=== PATIENT | male | born 1965 | race Caucasian/White ===

== ENCOUNTER → 2017-08-01 | Outpatient (REF) | payer OTHER | LOC: M SMT 10:46 | DX: R97.20 Elevated prostate specific antigen [PSA] (principal) ==

== ENCOUNTER → 2017-08-07 | Outpatient (CLI) | payer BC, OTHER | LOC: M SMT PRO 08:53 | DX: R97.20 Elevated prostate specific antigen [PSA] (principal) | CPT/HCPCS: G0416 ==

== ENCOUNTER → 2018-02-08 | Outpatient (CLI) | payer BC, OTHER ==
[2018-02-08 13:57] LABS: PROSTATIC SPECIFIC AG MONITOR 5.2 NG/ML (< 4.0)
== END ==
LOC: M SMT 11:37
DX: R97.20 Elevated prostate specific antigen [PSA] (principal)
CPT/HCPCS: 84153

== ENCOUNTER → 2018-07-02 | Outpatient (CLI) | payer BC, OTHER ==
[~2018-07-02] MED LIST: E-Z-GAS II EFFERVESCENT PACKET (SODIUM BICARB./CITRIC ACID/SIMETHICONE) As Ordered ONE; E-Z-HD 98% w/w 340GM SUSP BTL As Ordered ONE; E-Z-PAQUE 96% w/w SUSP 176GM BTL As Ordered ONE; OMEP-218 PO; PROS5TAB PO; VALA500T5 PO
--- NOTE | 2018-07-03 09:34 | REP ---
Esophagram The procedure was performed under the direct supervision of Dr. Shoemaker. The images were reviewed with Dr. Shoemaker. 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 The superior mediastinal structures are midline. There is no change compared to a previous chest x-ray performed on 04/25/2012. The barium was administered in the erect and prone oblique positions. The oral and pharyngeal stages of deglutition are unremarkable. The patient is status post Pro fundoplication and myotomy. The stricture just above the fundoplication seen on the previous exam dated 04/25/2012 has improved. There is dilation of the esophagus proximally. However, this is less than seen on the previous exam. There is residual food in the esophagus. There is delayed emptying. Impression: The stricture just above the fundoplication seen on a previous exam dated 04/25/2012 has improved. There is dilation of the esophagus proximally. However, this is less than seen on the previous exam. There is residual food in the esophagus. There is delayed emptying. 0.8 minutes of fluoro time was utilized for this procedure. Reviewed by HEATHER Webster 07/02/2018 05:01 P Electronically Signed by Jose Shoemaker MD 07/03/2018 09:25 A
== END ==
LOC: M RAD 08:30
PROVIDERS: ATTEND Internal Medicine Gastroenterology
DX: K22.0 Achalasia of cardia (principal)

== ENCOUNTER 2018-07-12 09:58 | Day surgery (SDC) | payer BC, OTHER ==
[~2018-07-12] VITALS: Ht 185.4 cm; Wt 87.1 kg
[2018-07-12] MEDS: NS 1,000 ML IV SCH ×2 (07:00→12:55)
[~2018-07-12 09:58] MED LIST changes: -E-Z-GAS II EFFERVESCENT PACKET (SODIUM BICARB./CITRIC ACID/SIMETHICONE) As Ordered ONE; -E-Z-HD 98% w/w 340GM SUSP BTL As Ordered ONE; -E-Z-PAQUE 96% w/w SUSP 176GM BTL As Ordered ONE; +LIDOCAINE 2% INJ 100 MG/5 ML SDV (FOR ANES.) As Ordered ONE; +PROPOFOL 200 MG/20 ML VIAL As Ordered ONE
--- NOTE | 2018-07-12 12:07 | ROOR ---
Patient Name: Santos Campbell Procedure Date: 07/12/2018 11:40 AM Date of : 1965 Age: 53 Room: [facility] Gender: Male Note Status: Finalized Procedure: Upper GI endoscopy Indications: Dyspepsia, Dysphagia, Follow-up of achalasia Providers: Joseph CALLAHAN MD Referring MD: Brianda BondC[place]), PIPEFITTER WELDER Requesting Provider: Medicines: Monitored Anesthesia Care Complications: No immediate complications. Procedure: Pre-Anesthesia Assessment: - The heart rate, respiratory rate, oxygen saturations, blood pressure, adequacy of pulmonary ventilation, and response to care were monitored throughout the procedure. The Endoscope was introduced through the mouth, and advanced to the second part of duodenum. The upper GI endoscopy was accomplished without difficulty. The patient tolerated the procedure well. Findings: No appreciable esophageal motility was noted. In addition, a hypertonic lower esophageal sphincter was found. There was mild resistance to endoscope advancement into the stomach. The Z-line was regular. The gastroesophageal junction and cardia were normal on retroflexed view. A TTS dilator was passed through the scope. Dilation with an 18-19-20 mm balloon dilator was performed to 20 mm at the lower esophageal sphincter. The entire examined stomach was normal. The examined duodenum was normal. Impression: - The esophageal examination was consistent with achalasia. LES tone is still elevated and requires gentle pressure for scope to pass - Dilation to 20 mm performed at the lower esophageal sphincter. There is no mucosal disruption and LES returns to pre dilation state. - Normal stomach. - Normal examined duodenum. - No specimens collected. Recommendation: - Observe patient's clinical course. - If symptoms of difficult swallowing persist, consideration may be given to referral to surgery to re-address residual/recurrent achalasia despite previous heller myotomy. Joseph Callahan MD Joseph CALLAHAN MD 07/12/2018 12:06:52 PM Electronically signed by Joseph CALLAHAN MD Number of Addenda: 0 Note Initiated On: 07/12/2018 11:40 AM Estimated Blood Loss: Estimated blood loss: none.
--- NOTE | 2018-07-12 12:25 | ROOR ---
Patient Name: Santos Campbell Procedure Date: 07/12/2018 11:41 AM Date of : 1965 Age: 53 Room: [facility] Gender: Male Note Status: Finalized Procedure: Colonoscopy Indications: Screening for colorectal malignant neoplasm Providers: Joseph NAYLOR MD Referring MD: Brianda Aguilera ([place]) PATHOLOGY TRANSCRIPTIONIST Requesting Provider: Medicines: Monitored Anesthesia Care Complications: No immediate complications. Procedure: Pre-Anesthesia Assessment: - The heart rate, respiratory rate, oxygen saturations, blood pressure, adequacy of pulmonary ventilation, and response to care were monitored throughout the procedure. The Colonoscope was introduced through the anus and advanced to the terminal ileum, with identification of the appendiceal orifice and IC valve. The colonoscopy was performed without difficulty. The patient tolerated the procedure well. The quality of the bowel preparation was good. Findings: The perianal and digital rectal examinations were normal. A diminutive polyp was found in the splenic flexure. The polyp was sessile. The polyp was removed with a cold snare. Resection and retrieval were complete. Small Internal Hemorrhoids. The exam was otherwise without abnormality on direct and retroflexion views. (Exam: Complete, Prep: Good or Excellent.) Impression: - One diminutive polyp at the splenic flexure, removed with a cold snare. Resected and retrieved. - Small Internal Hemorrhoids. - The examination was otherwise normal on direct and retroflexion views. - (Exam: Complete, Prep: Good or Excellent.) Recommendation: - Telephone endoscopist for pathology results in 2 weeks. - Repeat colonoscopy in 5-10 years for surveillance based on pathology results. Joseph Naylor MD Joseph NAYLOR MD 07/12/2018 12:25:36 PM Electronically signed by Joseph NAYLOR MD Number of Addenda: 0 Note Initiated On: 07/12/2018 11:41 AM Estimated Blood Loss: Estimated blood loss: none.
[2018-07-12 12:45] VITALS: BP 147/79
== END 2018-07-12 12:59 | disposition home or self-care (01) ==
LOC: M OPP 09:58
PROVIDERS: ATTEND Internal Medicine Gastroenterology
DX: K63.5 Polyp of colon (principal); K64.8 Other hemorrhoids; K22.0 Achalasia of cardia; R13.10 Dysphagia, unspecified; R10.13 Epigastric pain; Z12.11 Encounter for screening for malignant neoplasm of colon

== ENCOUNTER → 2018-08-12 | Outpatient (CLI) | payer BC, OTHER ==
[~2018-08-12] MED LIST changes: -LIDOCAINE 2% INJ 100 MG/5 ML SDV (FOR ANES.) As Ordered ONE; -PROPOFOL 200 MG/20 ML VIAL As Ordered ONE
[2018-08-13 14:12] LABS: PSA TOTAL 2.4 ng/mL (0.0-4.0)
== END ==
LOC: M LAB 12:00
PROVIDERS: ATTEND Urology
DX: R97.20 Elevated prostate specific antigen [PSA] (principal)

== ENCOUNTER → 2019-08-22 | Outpatient (CLI) | payer BC, OTHER | LOC: M LAB 13:48 | PROVIDERS: ATTEND Urology | DX: R97.20 Elevated prostate specific antigen [PSA] (principal) ==

== ENCOUNTER → 2020-08-31 | Outpatient (CLI) | payer BC, OTHER ==
[2020-09-01 23:09] LABS: PSA TOTAL 2.8 ng/mL (0.0-4.0)
== END ==
LOC: M LAB 09:15
PROVIDERS: ATTEND Urology
DX: R97.20 Elevated prostate specific antigen [PSA] (principal)

== ENCOUNTER → 2021-09-01 | Outpatient (CLI) | payer BC, OTHER ==
[~2021-09-01] MED LIST changes: +OMEP-173 PO; -OMEP-218 PO
[2021-09-02 23:07] LABS: PSA TOTAL 1.8 ng/mL (0.0-4.0)
== END ==
LOC: M LAB 09:33
PROVIDERS: ATTEND Urology
DX: N40.1 Benign prostatic hyperplasia with lower urinary tract symptoms (principal)

== ENCOUNTER → 2022-09-04 | Outpatient (CLI) | payer BC, OTHER | LOC: M LAB 10:25 | PROVIDERS: ATTEND Urology | DX: Z87.898 Personal history of other specified conditions (principal) ==

== ENCOUNTER → 2023-09-05 | Outpatient (CLI) | payer BC ==
[~2023-09-05] MED LIST changes: +FINA-48 PO; -PROS5TAB PO
== END ==
LOC: M LAB 11:00
PROVIDERS: ATTEND Urology
DX: Z87.898 Personal history of other specified conditions (principal)

== ENCOUNTER → 2024-09-10 | Outpatient (CLI) | payer BC ==
[2024-09-12 13:46] LABS: PSA % FREE 20.0 % (calc) (>25); PSA FREE 0.3 ng/mL; PSA TOTAL 1.5 ng/mL (< OR = 4.0)
== END ==
LOC: M LAB 10:01
PROVIDERS: ATTEND Urology
DX: R97.20 Elevated prostate specific antigen [PSA] (principal)